=== PATIENT | male | born 1960 | race Hispanic/Latino ===

== ENCOUNTER 2019-03-08 21:33 | Emergency (ER) | payer OTHER ==
[2019-03-08] MEDS ORDERED: KETOROLAC 30 MG/ML INJ ONE (22:34)
--- NOTE | 2019-03-08 23:05 | ER ---
Nurse's Notes [facility] Name: Chirag Gould III Age: 58 yrs Sex: Male : 1960 Arrival Date: 03/08/2019 Time: 21:43 Bed 15 Private MD: Diagnosis: Contusion of right elbow;Contusion of right wrist;Contusion of lower back and pelvis Presentation: 03/08 21:55 Presenting complaint: Patient states: "I slipped at work on a puddle and hit my lower jd3 back and left elbow and wrist.". Transition of care: patient was not received from another setting of care. Onset of symptoms was March 08, 2019. Risk Assessment: Do you want to hurt yourself or someone else? Patient reports no desire to harm self or others. Initial Sepsis Screen: Does the patient meet any 2 criteria? No. Patient's initial sepsis screen is negative. Does the patient have a suspected source of infection? No. Patient's initial sepsis screen is negative. Care prior to arrival: None. 21:55 Method Of Arrival: Ambulatory jd3 21:55 Acuity: BEA 4 jd3 Historical: - Allergies: 22:00 No Known Allergies; jd3 - Home Meds: 22:00 Baclofen Oral [Active]; jd3 - PMHx: 22:00 Asthma; jd3 - PSHx: 22:00 left ankle; jd3 - Immunization history:: Adult Immunizations up to date. - Social history:: Smoking status: Patient/guardian denies using tobacco. - Ebola Screening: : Patient negative for fever greater than or equal to 101.5 degrees Fahrenheit, and additional compatible Ebola Virus Disease symptoms. Screenin:55 Abuse screen: Denies threats or abuse. Denies injuries from another. Nutritional aa1 screening: No deficits noted. Tuberculosis screening: No symptoms or risk factors identified. Fall Risk Fall in past 12 months (25 points). Assessment: 21:55 General: Appears in no apparent distress. comfortable, Behavior is calm, cooperative, aa1 appropriate for age. Pain: Complains of pain in right hand and right wrist. 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 Full function. Respiratory: Airway is patent Respiratory effort is even, unlabored, Respiratory pattern is regular, symmetrical. GI: No signs and/or symptoms were reported involving the gastrointestinal system. : No signs and/or symptoms were reported regarding the genitourinary system. EENT: No signs and/or symptoms were reported regarding the EENT system. Derm: Skin is intact, is healthy with good turgor, Skin is pink, warm \\T\\ dry. Musculoskeletal: Circulation, motion, and sensation intact. Capillary refill < 3 seconds, Range of motion: intact in all extremities. 22:25 Reassessment: Patient appears in no apparent distress at this time. Patient is alert, aa1 oriented x 3, equal unlabored respirations, skin warm/dry/pink. Pt taken to x-ray at this time. 22:53 Reassessment: Patient appears in no apparent distress at this time. Patient and/or aa1 family updated on plan of care and expected duration. Pain level reassessed. Patient is alert, oriented x 3, equal unlabored respirations, skin warm/dry/pink. Pt back from x-ray at this time. Vital Signs: 22:00 BP 130 / 74; Pulse 79; Resp 16 S; Temp 99.0(O); Pulse Ox 95% on R/A; Weight 113.4 kg jd3 (R); Height 6 ft. 0 in. (182.88 cm) (R); Pain 9/10; 22:00 Body Mass Index 33.91 (113.40 kg, 182.88 cm) jd3 ED Course: 21:43 Patient arrived in ED. es 21:51 Cyrus Banks MD is Attending Physician. tw4 21:55 Patient has correct armband on for positive identification. Placed in gown. Bed in low aa1 position. Call light in reach. Pulse ox on. NIBP on. 21:58 Triage completed. jd3 22:01 Arm band placed on. jd3 22:11 Jazmin Rose, IVIS is Primary Nurse. aa1 22:48 Wrist Right 3 View XRAY In Process Unspecified. EDMS 22:48 Lumbar Spine (3 Views) XRAY In Process Unspecified. EDMS 22:49 Elbow Right 3 View XRAY In Process Unspecified. EDMS Administered Medications: 22:23 Drug: TORadol 60 mg Route: IM; Site: right deltoid; aa1 Outcome: 23:04 Discharge ordered by . tw4 23:28 Patient left the ED. aa1 Signatures: Dispatcher [employer] Jazmin Su RN RN aa1 Maxine Galeana Jonathon, RN RN jd3 Cyrus Banks MD MD tw4
--- NOTE | 2019-03-08 23:05 | EDPHYS ---
Physician Documentation [facility] Name: Chirag Gould III Age: 58 yrs Sex: Male : 1960 Arrival Date: 03/08/2019 Time: 21:43 Bed 15 Private MD: ED Physician Cyrus Banks HPI: 03/09 06:36 This 58 yrs old Male presents to ER via Ambulatory with complaints of work tw4 related injury. 06:36 The patient or guardian complains of injury. The complaints affect the right wrist. tw4 Context: The problem was sustained at work. Onset: The symptoms/episode began/occurred today. Treatment prior to arrival includes: no previous treatment. Modifying factors: The symptoms are alleviated by nothing. the symptoms are aggravated by nothing. Associated signs and symptoms: The patient has no apparent associated signs or symptoms. Severity of symptoms: At their worst the symptoms were moderate. The patient has not experienced similar symptoms in the past. Historical: - Allergies: 03/08 22:00 No Known Allergies; jd3 - Home Meds: 22:00 Baclofen Oral [Active]; jd3 - PMHx: 22:00 Asthma; jd3 - PSHx: 22:00 left ankle; jd3 - Immunization history:: Adult Immunizations up to date. - Social history:: Smoking status: Patient/guardian denies using tobacco. - Ebola Screening: : Patient negative for fever greater than or equal to 101.5 degrees Fahrenheit, and additional compatible Ebola Virus Disease symptoms. ROS: 03/09 06:36 Constitutional: Negative for fever, chills, and weight loss, Eyes: Negative for injury, tw4 pain, redness, and discharge, Cardiovascular: Negative for chest pain, palpitations, and edema, Respiratory: Negative for shortness of breath, cough, wheezing, and pleuritic chest pain, Abdomen/GI: Negative for abdominal pain, nausea, vomiting, diarrhea, and constipation, Skin: Negative for injury, rash, and discoloration, Neuro: Negative for headache, weakness, numbness, tingling, and seizure. Back: Positive for injury or acute deformity, pain at rest, pain with movement, Negative for MS/extremity: Positive for pain, tenderness. Exam: 06:36 Constitutional: This is a well developed, well nourished patient who is awake, alert, tw4 and in no acute distress. Head/Face: Normocephalic, atraumatic. Cardiovascular: Regular rate and rhythm with a normal S1 and S2. No gallops, murmurs, or rubs. Normal PMI, no JVD. No pulse deficits. Respiratory: Lungs have equal breath sounds bilaterally, clear to auscultation and percussion. No rales, rhonchi or wheezes noted. No increased work of breathing, no retractions or nasal flaring. Abdomen/GI: Soft, non-tender, with normal bowel sounds. No distension or tympany. No guarding or rebound. No evidence of tenderness throughout. Vital Signs: 03/08 22:00 BP 130 / 74; Pulse 79; Resp 16 S; Temp 99.0(O); Pulse Ox 95% on R/A; Weight 113.4 kg jd3 (R); Height 6 ft. 0 in. (182.88 cm) (R); Pain 9/10; 22:00 Body Mass Index 33.91 (113.40 kg, 182.88 cm) jd3 MDM: 21:51 Patient medically screened. tw4 03/09 06:36 Differential diagnosis: dislocation, open fracture, closed fracture. Data reviewed: tw4 vital signs, nurses notes. Counseling: I had a detailed discussion with the patient and/or guardian regarding: the historical points, exam findings, and any diagnostic results supporting the discharge/admit diagnosis. Special discussion: I discussed with the patient/guardian in detail that at this point there is no indication for admission to the hospital. It is understood, however, that if the symptoms persist or worsen the patient needs to return immediately for re-evaluation. 03/08 22:13 Order name: Wrist Right 3 View XRAY aa1 03/08 22:13 Order name: Lumbar Spine (3 Views) XRAY aa1 03/08 22:31 Order name: Elbow Right 3 View XRAY tw4 Administered Medications: 03/08 22:23 Drug: TORadol 60 mg Route: IM; Site: right deltoid; aa1 Disposition: 03/08/19 23:04 Discharged to Home. Impression: Contusion of right elbow, Contusion of right wrist, Contusion of lower back and pelvis. - Condition is Stable. - Discharge Instructions: Contusion, [id number]. - Prescriptions for Ibuprofen 800 mg Oral Tablet - take 1 tablet by ORAL route every 12 hours As needed take with food; 20 tablet. Cyclobenzaprine 10 mg Oral Tablet - take 1 tablet by ORAL route every 8 hours As needed; 30 tablet. - Work release form, Medication Reconciliation Form, Thank You Letter, Antibiotic Education, Prescription Opioid Use form. - Follow up: Private Physician; When: Upon discharge from the Emergency Department; Reason: If symptoms return, Recheck today's complaints, Continuance of care. - Problem is new. - Symptoms have improved. Signatures: Dispatcher [employer] Jazmin Su RN RN aa1 Josesito Ruano RN RN [id number] Cyrus Banks MD MD tw4 Corrections: (The following items were deleted from the chart) 23:28 23:04 03/08/2019 23:04 Discharged to Home. Impression: Contusion of right elbow; aa1 Contusion of right wrist; Contusion of lower back and pelvis. Condition is Stable. Forms are Medication Reconciliation Form, Thank You Letter, Antibiotic Education, Prescription Opioid Use. Follow up: Private Physician; When: Upon discharge from the Emergency Department; Reason: If symptoms return, Recheck today's complaints, Continuance of care. Problem is new. Symptoms have improved. tw4
--- NOTE | 2019-03-09 07:42 | RAD REPORT ---
EXAM DESCRIPTION: RAD - Elbow Right 3 View - 03/08/2019 10:51 pm CLINICAL HISTORY: Right elbow pain status post injury FINDINGS: No fracture or dislocation is seen.
--- NOTE | 2019-03-09 07:42 | RAD REPORT ---
EXAM DESCRIPTION: RAD - Lumbar Spine 3 Views - 03/08/2019 10:48 pm CLINICAL HISTORY: Back pain FINDINGS: The alignment of the lumbar spine is satisfactory. No fracture or dislocation is seen. Mild spondylosis involves the lumbar spine
--- NOTE | 2019-03-09 07:45 | RAD REPORT ---
EXAM DESCRIPTION: RAD - Wrist Right 3 View - 03/08/2019 10:49 pm CLINICAL HISTORY: Right wrist pain status post injury FINDINGS: No fracture or dislocation is seen. If the patient continues to have symptoms to suggest a n occult fracture then a followup plain film series in 7 days would be recommended.
== END 2019-03-08 23:28 | disposition home or self-care (01) ==
LOC: ER 21:33
DX: S50.01XA Contusion of right elbow, initial encounter (principal); S60.211A Contusion of right wrist, initial encounter; S30.0XXA Contusion of lower back and pelvis, initial encounter; J45.909 Unspecified asthma, uncomplicated
CPT/HCPCS: 72100; 96372; 99283